=== PATIENT | male | born 1945 | race Caucasian/White ===

== ENCOUNTER 2017-02-24 10:17 | Emergency (ER) | payer OTHER ==
[2017-02-24 09:42] LABS: BASOPHILS 0.1 %; BASOPHILS ABSOLUTE 0.01 10/3/uL (0.0-0.16); EOSINOPHILS 1.9 %; EOSINOPHILS ABSOLUTE 0.14 10/3/uL (0.0-0.53); HEMOGLOBIN 12.1 g/dL (13.6-17.8); IMMATURE GRANULOCYTES 0.3 %; IMMATURE GRANULOCYTES ABSOLUTE 0.02 10/3/uL (0.0-0.11); LYMPHOCYTES 17.9 %; LYMPHOCYTES ABSOLUTE 1.35 10/3/uL (0.67-4.30); MEAN CORPUS HGB CONC 33.7 g/dL (32.0-36.0); MEAN CORPUSCULAR HEMOGLOB 34.1 pg (26.0-34.0); MEAN CORPUSCULAR VOLUME 101.1 fL (80-100); MEAN PLATELET VOLUME 11.8 fL (9.2-13.0); MONOCYTES 8.5 %; MONOCYTES ABSOLUTE 0.64 10/3/uL (0.21-1.20); NEUTROPHILS 71.3 %; NEUTROPHILS ABSOLUTE 5.39 10/3/uL (2.02-8.40); PLATELET COUNT 174 10/3/uL (150-400); RBC DISTRIBUTION WIDTH 12.3 % (12.0-16.0); RED CELL COUNT 3.55 10/6/uL (4.7-6.1)
[2017-02-24 09:44] LABS: ER CBC TAT 0 Hrs 08 Mins; HEMATOCRIT 35.9 % (40.0-51.0); MANUAL DIFF NO %; WHITE BLOOD CELLS 7.6 10/3/uL (4.5-10.5)
[2017-02-24 10:00] LABS: A/G RATIO 0.9 (0.7-1.9); ALKALINE PHOSPHATASE 107 U/L (45-117); CALCIUM, SERUM 8.4 MG/DL (8.5-10.4); CHLORIDE, SERUM 104 MMOL/L (96-112); CO2 (CARBON DIOXIDE) 32 MMOL/L (24-34); GLOBULIN 3.5 G/DL (2.5-4.1); POTASSIUM, SERUM 3.7 MMOL/L (3.5-5.3); SGOT(AST) 18 U/L (5-40); SGPT(ALT) 37 U/L (5-65); SODIUM, SERUM 145 MMOL/L (135-148); TOTAL BILIRUBIN 0.5 MG/DL (0-1.2); TOTAL PROTEIN 6.5 G/DL (6.0-8.5)
[~2017-02-24 10:17] MED LIST: ALBUTEROL5 INH; AMARYL2 PO; APRES50 PO; ASAB PO; ASMANEX200 INH; COREG25 PO; DEMA20 PO; FLONASE NAS; HAIR,SKIN,NAILS PO; IMDUR30 PO; INSPRA25 PO; LEVEMIR SC; LIPITOR10 PO; LOTE40 PO; MULTIVITAMI1 PO; NORV5 PO; OXYCON40 PO; P10 PO; PROAIR HFA INH; PULRESP1 INH; SPIRO25 PO; TUDORZA PRESS400 MCG INH; ULORIC40 MG PO; VITAMIN D31000 UNIT PO; XANAX1 MG PO; ZOL100 PO
[2017-02-24 10:19] LABS: BUN (BLOOD UREA NITROGEN) 24 MG/DL (6-23); CREATININE 1.65 MG/DL (0.70-1.30); GFR AFRICAN AMERICAN 48 ML/MIN (>=60); GFR NON AFRICAN AMERICAN 41 ML/MIN (>=60); GLUCOSE, SERUM 250 MG/DL (60-99)
[2017-03-06] MEDS ORDERED: ANOROELLIPTA INH (09:23)
[2017-03-07] MEDS ORDERED: BUM2 PO (08:22)
[2017-03-07] MEDS ORDERED: KLONO5 PO (08:25)
[2017-03-07] MEDS ORDERED: CATAPRES2 TOP (08:26)
[2017-03-07] MEDS ORDERED: ULORIC40 MG PO (08:32)
== END 2017-02-24 11:40 | disposition home or self-care (01) ==
LOC: ER 10:17
PROVIDERS: Hospitalist
DX: F41.9 Anxiety disorder, unspecified (principal); J44.1 Chronic obstructive pulmonary disease with (acute) exacerbation; I13.0 Hypertensive heart and chronic kidney disease with heart failure and stage 1 through stage 4 chronic kidney disease, or unspecified chronic kidney disease; E11.22 Type 2 diabetes mellitus with diabetic chronic kidney disease; N18.9 Chronic kidney disease, unspecified; I50.9 Heart failure, unspecified; E11.65 Type 2 diabetes mellitus with hyperglycemia; K21.9 Gastro-esophageal reflux disease without esophagitis; Z79.4 Long term (current) use of insulin; Z79.82 Long term (current) use of aspirin; Z79.899 Other long term (current) drug therapy
CPT/HCPCS: 36600; 71010; 80053; 85025; 93005; 99284